=== PATIENT | female | born 1990 | race Caucasian/White ===

== ENCOUNTER 2018-10-06 12:48 | Emergency (ER) | payer OTHER ==
[~2018-10-06] VITALS: Ht 167.6 cm; Wt 97.5 kg
[~2018-10-06 12:48] MED LIST: NITR-58 PO
[2018-10-06 12:56] VITALS: Ht 167.6 cm; Wt 97.5 kg
[2018-10-06 17:05] VITALS: BP 120/71; PULSE 96; RESP 18
== END 2018-10-06 17:06 | disposition home or self-care (01) ==
LOC: FTE 12:48
DX: O20.9 Hemorrhage in early pregnancy, unspecified (principal); O23.11 Infections of bladder in pregnancy, first trimester; Z3A.01 Less than 8 weeks gestation of pregnancy
CPT/HCPCS: 76801; 80053; 81001; 81025; 84702; 85025; 85610; 85730; 86900; 86901; 87086

== ENCOUNTER 2018-10-08 11:02 | Emergency (ER) | payer OTHER ==
[~2018-10-08] VITALS: Ht 162.6 cm; Wt 60.5 kg
[2018-10-08 11:10] VITALS: Ht 162.6 cm; Wt 60.5 kg
[2018-10-08 14:50] VITALS: BP 132/62; PULSE 66; RESP 18
== END 2018-10-08 14:52 | disposition home or self-care (01) ==
LOC: FTE 11:02
DX: O20.9 Hemorrhage in early pregnancy, unspecified (principal); Z3A.01 Less than 8 weeks gestation of pregnancy
CPT/HCPCS: 36415; 76801; 76817; 81001; 84702; 85025